=== PATIENT | male | born 1955 ===

== ENCOUNTER 2023-06-18 05:30 | Day surgery (SDC) | payer OTHER ==
[2023-06-18] MEDS ORDERED: TRAMADOL HCL50 MG PO (09:23)
== END 2023-06-18 11:30 | disposition home or self-care (01) ==
LOC: CIR.AMB 05:30 → EDBD 09:30 → CIR.AMB 11:30
PROVIDERS: ATTEND Surgery
DX: C20 Malignant neoplasm of rectum (principal); K62.5 Hemorrhage of anus and rectum; K62.89 Other specified diseases of anus and rectum; Z20.822 Contact with and (suspected) exposure to COVID-19; E78.5 Hyperlipidemia, unspecified